=== PATIENT | male | born 1945 | race Caucasian/White ===

== ENCOUNTER → 2016-06-29 | Outpatient (CLI) | payer MEDICARE, OTHER ==
[2016-06-29 08:31] LABS: CH 32.2; HCT 47.3 % (39.0-53.0); HDW 2.83; HGB 15.8 gm/dL (13.0-17.5); MCH 31.8 pg (25.0-35.0); MCHC 33.4 g/dL (31.0-37.0); Mean Platelet Volume 7.7; RBC 4.97 m/uL (4.30-5.90); RDW 13.8 % (11.5-15.5); WBC 8.1 k/uL (3.8-10.6)
[2016-06-29 09:18] LABS: Appearance,Urine Clear (Clear); Bilirubin,Urine Negative (Negative); Glucose,Urine (UA) Negative (Negative); Ketones,Urine Trace (Negative); Leukocyte Esterase,Urine Negative (Negative); Nitrite,Urine Negative (Negative); PH, Urine 6.5 (5.0-8.0); Protein,Urine Negative (Negative); UA Billing (MACRO vs. MICRO) CHEM; Urobilinogen,Urine <2.0 mg/dL (<2.0)
[2016-06-29 11:28] LABS: ALT 40 U/L (21-72); AST 33 U/L (17-59); Alkaline Phosphatase 60 U/L (38-126); Anion Gap 11 mmol/L; Blood Urea Nitrogen 16 mg/dL (9-20); Calcium 9.5 mg/dL (8.4-10.2); Carbon Dioxide 26 mmol/L (22-30); Chloride 104 mmol/L (98-107); Cholesterol 215 mg/dL (<200); Glucose 102 mg/dL (74-99); HDL Cholesterol 46 mg/dL (40-60); Non-African American GFR(MDRD) >60 (>60 ml/min/1.73 sqM); Potassium 4.3 mmol/L (3.5-5.1); Sodium 141 mmol/L (137-145); Total Bilirubin 1.6 mg/dL (0.2-1.3); Triglycerides 155 mg/dL (<150)
== END | disposition home or self-care (01) ==
LOC: LABWHC1 08:00
PROVIDERS: ATTEND Internal Medicine
DX: E78.5 Hyperlipidemia, unspecified (principal); I10 Essential (primary) hypertension; Z12.5 Encounter for screening for malignant neoplasm of prostate
CPT/HCPCS: 80061; 80053; 85027; 81003; 36415; G0103

== ENCOUNTER → 2016-08-04 | Outpatient (CLI) | payer MEDICARE, OTHER ==
--- NOTE | 2016-08-04 10:59 | ECHOF ---
Referral Reason:I34.0 mitral regurgitation I10 htn MEASUREMENTS -------- HEIGHT: 188.0 cm WEIGHT: 147.4 kg BP: 165/92 RVIDd: 3.9 cm (< 3.3) IVSd: 1.4 cm (0.6 - 1.1) LVIDd: 4.7 cm (3.9 - 5.3) LVPWd: 1.5 cm (0.6 - 1.1) IVSs: 1.9 cm LVIDs: 3.2 cm LVPWs: 1.8 cm LA Diam: 4.0 cm (2.7 - 3.8) LAESV Index (A-L): 24.53 ml/m Ao Diam: 4.4 cm (2.0 - 3.7) AV Cusp: 1.4 cm (1.5 - 2.6) MV EXCURSION: 21.432 mm (> 18.000) MV EF SLOPE: 24 mm/s (70 - 150) EPSS: 0.8 cm MV E Benjamin: 0.80 m/s MV DecT: 275 ms MV A Benjamin: 1.24 m/s MV E/A Ratio: 0.64 AV maxP.30 mmHg AV meanP.06 mmHg FINDINGS -------- Sinus rhythm. This was a technically adequate study. The left ventricular size is normal. There is moderate concentric left ventricular hypertrophy. Overall left ventricular systolic function is normal with, an EF between 55 - 60 %. The right ventricle is mild to moderately enlarged. Normal LA size by volume 22+/-6 ml/m2. The right atrium is normal in size. The aortic valve was not well visualized. There is mild aortic regurgitation. There is mild aortic stenosis present. Peak/mean gradient across the Aortic Valve is 17.30mmHg / 8.06mmHg. Can't exclude possible Bicuspid Aov. Mild mitral annular calcification present. Mild mitral regurgitation is present. The tricuspid valve was not well visualized. The pulmonic valve was not well visualized. The aortic root and ascending aorta are dilated measuring up to 44 mm. Normal inferior vena cava with normal inspiratory collapse consistent with estimated right atrial pressure of 5 mmHg. The pericardium is normal. CONCLUSIONS -------- 1. Sinus rhythm. 2. There is mild aortic regurgitation. 3. There is mild aortic stenosis present. 4. Peak/mean gradient across the Aortic Valve is 17.30mmHg / 8.06mmHg. 5. Can't exclude possible Bicuspid Aov. 6. Mild mitral annular calcification present. 7. Mild mitral regurgitation is present. 8. The tricuspid valve was not well visualized. 9. The pulmonic valve was not well visualized. 10. The aortic root and ascending aorta are dilated measuring up to 44 mm. 11. Normal inferior vena cava with normal inspiratory collapse consistent with estimated right atrial pressure of 5 mmHg. 12. This was a technically adequate study. 13. The pericardium is normal. 14. The left ventricular size is normal. 15. There is moderate concentric left ventricular hypertrophy. 16. Overall left ventricular systolic function is normal with, an EF between 55 - 60 %. 17. The right ventricle is mild to moderately enlarged. 18. Normal LA size by volume 22+/-6 ml/m2. 19. The right atrium is normal in size. 20. The aortic valve was not well visualized. DENTISTRY TEACHER: Simona Melchor RDCS
== END | disposition home or self-care (01) ==
LOC: RADECHMAIN 08:31
PROVIDERS: ATTEND Internal Medicine
DX: I08.0 Rheumatic disorders of both mitral and aortic valves (principal); I10 Essential (primary) hypertension; E78.5 Hyperlipidemia, unspecified
CPT/HCPCS: 93306

== ENCOUNTER → 2017-06-29 | Outpatient (CLI) | payer MEDICARE, OTHER ==
[2017-06-29 08:48] LABS: HCT 43.7 % (39.0-53.0); HGB 14.7 gm/dL (13.0-17.5); MCH 30.5 pg (25.0-35.0); MCHC 33.6 g/dL (31.0-37.0); MCV 90.8 fL (80.0-100.0); Mean Platelet Volume 8.1; Platelet Count 196 k/uL (150-450); RBC 4.82 m/uL (4.30-5.90); WBC 7.5 k/uL (3.8-10.6)
[2017-06-29 08:57] LABS: Appearance,Urine Clear (Clear); Bilirubin,Urine Negative (Negative); Blood,Urine Negative (Negative); Color,Urine Yellow; Glucose,Urine (UA) Negative (Negative); Ketones,Urine Trace (Negative); Leukocyte Esterase,Urine Negative (Negative); Nitrite,Urine Negative (Negative); Protein,Urine Negative (Negative); Specific Gravity,Urine 1.009 (1.001-1.035); Urobilinogen,Urine <2.0 mg/dL (<2.0)
[2017-06-29 10:04] LABS: ALT 32 U/L (21-72); AST 35 U/L (17-59); Albumin 3.8 g/dL (3.5-5.0); Alkaline Phosphatase 55 U/L (38-126); Anion Gap 13 mmol/L; Blood Urea Nitrogen 11 mg/dL (9-20); Calcium 9.1 mg/dL (8.4-10.2); Carbon Dioxide 23 mmol/L (22-30); Chloride 107 mmol/L (98-107); Cholesterol 199 mg/dL (<200); Glucose 97 mg/dL (74-99); HDL Cholesterol 47 mg/dL (40-60); LDL Cholesterol,Calculated 135 mg/dL (0-99); Sodium 143 mmol/L (137-145); Total Bilirubin 1.2 mg/dL (0.2-1.3); Total Protein 6.3 g/dL (6.3-8.2); Triglycerides 84 mg/dL (<150)
[2017-06-29 10:28] LABS: Prostate Specific Antigen 0.49 ng/mL (0.00-4.00)
== END | disposition home or self-care (01) ==
LOC: LABWHC1 07:51
PROVIDERS: ATTEND Internal Medicine
DX: E78.5 Hyperlipidemia, unspecified (principal); I10 Essential (primary) hypertension; Z12.5 Encounter for screening for malignant neoplasm of prostate
CPT/HCPCS: 36415; 80053; 80061; 81003; 84153; 85027

== ENCOUNTER → 2017-07-13 | Outpatient (CLI) | payer MEDICARE, OTHER ==
--- NOTE | 2017-07-19 10:28 | ECHOF ---
Referral Reason:I34.0 Nonrheumatic mitral (valve) insufficiency MEASUREMENTS -------- HEIGHT: 188.0 cm WEIGHT: 147.4 kg BP: 156/85 RVIDd: 2.7 cm (< 3.3) IVSd: 1.3 cm (0.6 - 1.1) LVIDd: 5.7 cm (3.9 - 5.3) LVPWd: 1.3 cm (0.6 - 1.1) IVSs: 1.7 cm LVIDs: 3.8 cm LVPWs: 1.9 cm LAESV Index (A-L): 39.66 ml/m Ao Diam: 3.4 cm (2.0 - 3.7) AV Cusp: 2.3 cm (1.5 - 2.6) LA Diam: 4.3 cm (2.7 - 3.8) MV E Benjamin: 0.79 m/s MV DecT: 301 ms MV A Benjamin: 1.19 m/s MV E/A Ratio: 0.66 RAP: 5.00 mmHg RVSP: 29.00 mmHg FINDINGS -------- Sinus rhythm. This was a technically adequate study. The left ventricular size is normal. There is mild concentric left ventricular hypertrophy. Overa ll left ventricular systolic function is mildly impaired with, an EF between 45 - 50 %. The right ventricle is normal in size and function. LA is moderately dilated 34-39 ml/m2 The right atrium is normal in size. There is mild aortic valve sclerosis. There is no evidence of aortic regurgitation. There is no e vidence of aortic stenosis. The mitral valve leaflets are mildly thickened. Mild mitral annular calcification present. Modera te mitral regurgitation is present. Trace tricuspid regurgitation present. Right ventricular systolic pressure is normal at < 35 mmHg. There is no evidence of pulmonary hypertension. The pulmonic valve was not well visualized. The aortic root is mildy dilated up to 3.9 cm. Normal inferior vena cava with normal inspiratory collapse consistent with estimated right atrial pre ssure of 5 mmHg. There is no pericardial effusion. CONCLUSIONS -------- 1. Sinus rhythm. 2. This was a technically adequate study. 3. The left ventricular size is normal. 4. There is mild concentric left ventricular hypertrophy. 5. Overall left ventricular systolic function is mildly impaired with, an EF between 45 - 50 %. 6. LA is moderately dilated 34-39 ml/m2 7. There is mild aortic valve sclerosis. 8. The mitral valve leaflets are mildly thickened. 9. Mild mitral annular calcification present. 10. Moderate mitral regurgitation is present. 11. Trace tricuspid regurgitation present. 12. Right ventricular systolic pressure is normal at < 35 mmHg. 13. There is no evidence of pulmonary hypertension. 14. The pulmonic valve was not well visualized. 15. The aortic root is mildy dilated up to 3.9 cm. 16. There is no pericardial effusion. GRANITE POLISHER: Abilio Eastman RDCS
== END | disposition home or self-care (01) ==
LOC: RADECHMAIN 08:19
PROVIDERS: ATTEND Internal Medicine
DX: I08.0 Rheumatic disorders of both mitral and aortic valves (principal); I77.819 Aortic ectasia, unspecified site
CPT/HCPCS: 93306

== ENCOUNTER → 2018-07-05 | Outpatient (CLI) | payer MEDICARE, OTHER ==
[2018-07-05 09:54] LABS: HCT 45.4 % (39.0-53.0); HGB 15.7 gm/dL (13.0-17.5); MCH 32.3 pg (25.0-35.0); MCHC 34.5 g/dL (31.0-37.0); MCV 93.7 fL (80.0-100.0); Mean Platelet Volume 7.6; Platelet Count 186 k/uL (150-450); RBC 4.84 m/uL (4.30-5.90); RDW 13.5 % (11.5-15.5); WBC 6.9 k/uL (3.8-10.6)
[2018-07-05 10:07] LABS: Appearance,Urine Clear (Clear); Bilirubin,Urine Negative (Negative); Blood,Urine Negative (Negative); Color,Urine Yellow; Glucose,Urine (UA) Negative (Negative); Ketones,Urine Negative (Negative); Leukocyte Esterase,Urine Negative (Negative); Nitrite,Urine Negative (Negative); PH, Urine 6.5 (5.0-8.0); Protein,Urine Negative (Negative); Specific Gravity,Urine 1.014 (1.001-1.035); Urobilinogen,Urine <2.0 mg/dL (<2.0)
[2018-07-05 16:45] LABS: African American GFR (CKD) 104.2 (60.0-200.0); Albumin 4.1 g/dL (3.80-4.90); Albumin/Globulin Ratio 2.28 (1.60-3.17); Anion Gap 5.2 mmol/L (4.00-12.00); BUN/Creat Ratio 16.25 Ratio (12.00-20.00); Calcium 8.8 mg/dL (8.7-10.3); Carbon Dioxide 24.8 mmol/L (21.6-31.8); Globulin 1.8 g/dL (1.6-3.3); LDL Cholesterol,Calculated 126.6 mg/dL (0.0-131.0); Potassium 4.2 mmol/L (3.5-5.5); Total Bilirubin 1.3 mg/dL (0.3-1.2); Total Protein 5.9 g/dL (6.2-8.2); VLDL Calculation 22.4 mg/dL (5.00-40.00)
== END | disposition home or self-care (01) ==
LOC: LABWHC1 09:10
PROVIDERS: ATTEND Internal Medicine
DX: N40.0 Benign prostatic hyperplasia without lower urinary tract symptoms (principal); E78.5 Hyperlipidemia, unspecified; I10 Essential (primary) hypertension
CPT/HCPCS: 36415; 80053; 80061; 81003; 84153; 85027

== ENCOUNTER → 2018-08-28 | Outpatient (CLI) | payer MEDICARE, OTHER ==
--- NOTE | 2018-08-28 11:57 | ECHOF ---
Referral Reason:R01.1 Murmur MEASUREMENTS -------- HEIGHT: 188.0 cm WEIGHT: 147.4 kg BP: 168/86 RVIDd: 3.6 cm (< 3.3) IVSd: 1.4 cm (0.6 - 1.1) LVIDd: 6.3 cm (3.9 - 5.3) LVPWd: 1.4 cm (0.6 - 1.1) IVSs: 1.6 cm LVIDs: 4.2 cm LVPWs: 1.9 cm LA Diam: 4.4 cm (2.7 - 3.8) LAESV Index (A-L): 23.97 ml/m Ao Diam: 4.7 cm (2.0 - 3.7) AV Cusp: 2.5 cm (1.5 - 2.6) MV EXCURSION: 19.132 mm (> 18.000) MV EF SLOPE: 43 mm/s (70 - 150) EPSS: 0.9 cm MV E Benjamin: 0.87 m/s MV DecT: 407 ms MV A Benjamin: 1.09 m/s MV E/A Ratio: 0.80 FINDINGS -------- Sinus rhythm. This was a technically adequate study. The left ventricle is mildly dilated. There is moderate concentric left ventricular hypertrophy. Overall left ventricular systolic function is normal with, an EF between 60 - 65 %. The right ventricle is mildly enlarged. Normal LA size by volume 22+/-6 ml/m2. The right atrium is normal in size. Interatrial and interventricular septum intact. The aortic valve was not well visualized. There is trace mitral regurgitation. The tricuspid valve appears structurally normal. The pulmonic valve was not well visualized. The aortic root is dilated measuring 4.7cm. IVC Not well visulized. There is no pericardial effusion. CONCLUSIONS -------- 1. Sinus rhythm. 2. This was a technically adequate study. 3. The left ventricle is mildly dilated. 4. There is moderate concentric left ventricular hypertrophy. 5. Overall left ventricular systolic function is normal with, an EF between 60 - 65 %. 6. The right ventricle is mildly enlarged. 7. Normal LA size by volume 22+/-6 ml/m2. 8. The right atrium is normal in size. 9. Interatrial and interventricular septum intact. 10. The aortic valve was not well visualized. 11. There is trace mitral regurgitation. 12. The tricuspid valve appears structurally normal. 13. The pulmonic valve was not well visualized. 14. The aortic root is dilated measuring 4.7cm. 15. IVC Not well visulized. 16. There is no pericardial effusion. SEO EXECUTIVE: Simona Melchor RDCS
== END | disposition home or self-care (01) ==
LOC: RADECHMAIN 10:24
PROVIDERS: ATTEND Internal Medicine
DX: I51.7 Cardiomegaly (principal); I77.819 Aortic ectasia, unspecified site; Z88.5 Allergy status to narcotic agent
CPT/HCPCS: 93306

== ENCOUNTER → 2018-09-04 | Outpatient (CLI) | payer MEDICARE, OTHER ==
[2018-09-04 14:27] LABS: African American GFR (CKD) >90 (>60 ml/min/1.73 sqM); Blood Urea Nitrogen 18 mg/dL (9-20)
--- NOTE | 2018-09-04 15:18 | CT ---
EXAMINATION TYPE: CT chest w con DATE OF EXAM: 09/04/2018 COMPARISON: NONE HISTORY: No complaints at time of scan. Follow up from abnormal TE. CT DLP: 664.1 mGycm. Automated Exposure Control for Dose Reduction was Utilized. TECHNIQUE: CT scan of the thorax is performed following with IV Contrast, patient injected with 100 mL of Isovue 370. FINDINGS: LUNGS: Elevated right hemidiaphragm is present. There is patchy bibasilar linear scarring and/or atel ectasis. No pleural effusion or pneumothorax. No suspicious masses. MEDIASTINUM: There are no greater than 1 cm hilar or mediastinal lymph nodes. No pericardial effusi on is seen. Mild cardiomegaly. Moderate calcifications at level of the aortic valve. Moderate to sev ere coronary artery calcifications which is noted marker for underlying coronary artery disease. Asce nding aorta measures up to 4.4 cm in diameter in level of main pulmonary artery bifurcation axial aracely ge 28. Mild to moderate left ventricular dilatation. OTHER: Cholecystectomy clips are noted. Moderate multilevel spurring in the thoracic spine. IMPRESSION: Mild cardiomegaly with confirmation of 4.4 cm aneurysm of the ascending aorta
== END | disposition home or self-care (01) ==
LOC: RADCTMAIN 13:48
PROVIDERS: ATTEND Internal Medicine
DX: I71.2 Thoracic aortic aneurysm, without rupture (principal); I51.7 Cardiomegaly
CPT/HCPCS: 82565; 84520; 71260; 36415; Q9967

== ENCOUNTER 2018-10-03 05:51 | Day surgery (SDC) | payer MEDICARE, OTHER ==
[2018-09-26 15:34] VITALS: BMI 41.7
[2018-10-03 06:30] VITALS: TEMP 97.9
[2018-10-03] MEDS ORDERED: SODIUM CHLORIDE 0.9% 500 ML 500 ML IV ONE (06:31)
[2018-10-03] MEDS ORDERED: fentaNYL (PF) 50 MCG/ML 2 ML AMP ONE (07:05)
[2018-10-03] MEDS ORDERED: BENZOCAINE SPRAY 1 CAN MUCOUS MEM ONE (07:17)
[2018-10-03] MEDS ORDERED: fentaNYL (PF) 50 MCG/ML 2 ML AMP IV ONE (07:18)
[2018-10-03] MEDS ORDERED: MIDAZOLAM PF (FBP) 2 MG/2 ML VIAL IV ONE ×2 (07:19→07:23)
[2018-10-03] MEDS ORDERED: SODIUM CHLORIDE 0.9% 1,000 ML IV SCH (07:45)
[2018-10-03 07:54] VITALS: RESP 16
--- NOTE | 2018-10-03 08:06 | ECHOT ---
TRANSESOPHAGEAL ECHOCARDIOGRAM INDICATION: Evaluation of mitral valve. PROCEDURE: After explaining the procedure to the patient, its risks and the complications, his blood pressure, heart rate, O2 saturation was monitored. The throat was sprayed with Cetacaine. He received 3 mg intravenous Versed, 50 mcg intravenous fentanyl. The probe was introduced in the esophagus without difficulty. Images were obtained. Following that, the probe was removed. There was no immediate complication. FINDINGS: Left atrial size is moderately dilated. Left atrial appendage is normal. Left ventricular size is normal. There is mild global hypokinesis. Estimated ejection fraction 45% to 50%. The aortic valve appears to be normal. Mitral valve reveals severe prolapse of the posterior mitral valve leaflets, appears to be in the P2 segment with ruptured chordae noted. The tricuspid valve is normal. The descending thoracic aorta appears to be normal. The ascending aorta was dilated at 4.1 cm. No pericardial effusion noted was noted. Contrast bubble study revealed no shunting across the interatrial septum with Valsalva maneuver. Doppler pulse wave and color Doppler obtained revealed severe eccentric mitral regurgitation with mild tricuspid and trace aortic regurgitation. There was no shunting by color Doppler study. CONCLUSION: 1. Dilated left atrium with normal appearance of left atrial appendage. 2. Normal left ventricular size with mild global hypokinesis. 3. Severe prolapse of the posterior mitral valve leaflet with severe eccentric mitral regurgitation. 4. Mild tricuspid regurgitation with trace aortic regurgitation. 5. Mildly dilated ascending aorta. 6. No shunting across the interatrial septum. 7. No pericardial effusion. MMODL / IJN: [id number] /
[2018-10-03] MEDS ORDERED: NON FORMULARY DRUG (Turmeric Root Extract [Turmeric] 500 MG) PO SCH (09:00)
[2018-10-03] MEDS ORDERED: LECITHIN SOY 400 MG PO SCH (09:00)
[2018-10-03] MEDS ORDERED: LOSARTAN 50 MG TAB PO SCH (09:00)
[2018-10-03] MEDS ORDERED: NON FORMULARY DRUG (Aspirin [Adult Low Dose Aspirin Ec] 81 MG) PO SCH (09:00)
[2018-10-03] MEDS ORDERED: NON FORMULARY DRUG (Ubidecarenone [Co Q-10] 100 MG) PO SCH (09:00)
[2018-10-03] MEDS ORDERED: EZETIMIBE 10 MG TAB PO SCH (09:00)
[2018-10-03] MEDS ORDERED: NON FORMULARY DRUG (Vit C/E/Zn/Coppr/Lutein/Zeaxan [Preservision Areds 2 Softgel] 1 EACH) PO SCH (09:00)
[2018-10-03] MEDS ORDERED: MONTELUKAST 10 MG TAB PO SCH (09:00)
[2018-10-03] MEDS ORDERED: NON FORMULARY DRUG (Simvastatin 20 MG) PO SCH (09:00)
[2018-10-03] MEDS ORDERED: NON FORMULARY DRUG (Magnesium Oxide 250 MG) PO SCH (09:00)
[2018-10-03] MEDS ORDERED: NON FORMULARY DRUG (Omega-3 Fatty Acids [Omega-3] 1,000 MG) PO SCH (09:00)
[2018-10-03 09:07] VITALS: BP 117/65; PULSE 66
== END 2018-10-03 09:05 | disposition home or self-care (01) ==
LOC: CATHCVL 05:51
PROVIDERS: ATTEND Internal Medicine Interventional Cardiology
DX: I08.0 Rheumatic disorders of both mitral and aortic valves (principal); I71.2 Thoracic aortic aneurysm, without rupture; I10 Essential (primary) hypertension; Z82.49 Family history of ischemic heart disease and other diseases of the circulatory system; Z88.5 Allergy status to narcotic agent; Z79.82 Long term (current) use of aspirin; Z79.899 Other long term (current) drug therapy
CPT/HCPCS: 93312; 93320; 93325; J3010; J2250

== ENCOUNTER → 2018-11-06 | Outpatient (CLI) | payer MEDICARE, OTHER ==
[2018-11-06 17:34] LABS: African American GFR (CKD) 104.2 (60.0-200.0); Albumin 3.7 g/dL (3.80-4.90); Albumin/Globulin Ratio 2.18 (1.60-3.17); Anion Gap 8.6 mmol/L (4.00-12.00); BUN/Creat Ratio 17.5 Ratio (12.00-20.00); Calcium 8.6 mg/dL (8.7-10.3); Carbon Dioxide 25.4 mmol/L (21.6-31.8); Chol/HDL Ratio 5.24; Globulin 1.7 g/dL (1.6-3.3); LDL Cholesterol,Calculated 127.8 mg/dL (0.0-131.0); Total Bilirubin 0.6 mg/dL (0.2-1.2); Total Protein 5.4 g/dL (6.2-8.2); VLDL Calculation 29.2 mg/dL (5.00-40.00)
== END | disposition home or self-care (01) ==
LOC: LABWHC1 08:40
PROVIDERS: ATTEND Internal Medicine Interventional Cardiology
DX: E78.2 Mixed hyperlipidemia (principal)
CPT/HCPCS: 36415; 80053; 80061

== ENCOUNTER → 2018-11-06 | Outpatient (CLI) | payer MEDICARE, OTHER ==
[2018-11-06 09:14] LABS: HCT 41.8 % (39.0-53.0); HGB 14.1 gm/dL (13.0-17.5); MCH 31.9 pg (25.0-35.0); MCHC 33.8 g/dL (31.0-37.0); MCV 94.3 fL (80.0-100.0); Mean Platelet Volume 7.3; Platelet Count 196 k/uL (150-450); RBC 4.44 m/uL (4.30-5.90); RDW 13.7 % (11.5-15.5); WBC 9.7 k/uL (3.8-10.6)
== END | disposition home or self-care (01) ==
LOC: LABPAT 08:38
PROVIDERS: ATTEND Internal Medicine Interventional Cardiology
DX: Z01.812 Encounter for preprocedural laboratory examination (principal); I10 Essential (primary) hypertension; I25.10 Atherosclerotic heart disease of native coronary artery without angina pectoris
CPT/HCPCS: 85027

== ENCOUNTER → 2018-11-13 | Day surgery (SDC) | payer MEDICARE, OTHER ==
[2018-11-08 12:13] VITALS: BMI 40.4
[~2018-11-13] MED LIST: ALPRAZolam 0.25 MG TAB PO PRN; ALPRAZolam 0.5 MG TAB PO PRN; ASPIRIN 325 MG TAB PO STA; ASPIRIN 81 MG PO SCH; ATORVASTATIN 80 MG TAB PO STA; EZETIMIBE 10 MG TAB PO SCH; HEPARIN SODIUM 1,000 UN/ML (10ML VL) IV ONE; HEPARIN SODIUM 1,000 UN/ML (10ML VL) ONE; INSULIN ASPART (NovoLOG) 100 UNIT/ML VIAL SQ ONE; IOPAMIDOL-370 125ML BTL INJ ONE; IOPAMIDOL-370 50ML BTL INJ ONE; LIDOCAINE 1% INJ 10MG/ML (20 ML MDV) ONE; LIDOCAINE 1% INJ 10MG/ML (20 ML MDV) SQ ONE; LOSARTAN 50 MG TAB PO SCH; MONTELUKAST 10 MG TAB PO SCH; NITROGLYCERIN SL TABS 0.4 MG TAB SUBLINGUAL PRN; RX INFO: IV CONTRAST WAS GIVEN 1 EACH MISC MISCELLANE PRN; SODIUM CHLORIDE 0.9% 1,000 ML IV SCH; SODIUM CHLORIDE 0.9% 1,000 ML in EMPTY BAG 1 BAG IV ONE; VERAPAMIL 2.5 MG/ML 2 ML AMP ONE; VERAPAMIL SYRINGE (5 MG/10 ML) INTRAARTER ONE
[2018-11-13 07:09] VITALS: RESP 18; TEMP 97.8
[2018-11-13] MEDS: MIDAZOLAM (PF) 2 MG/2 ML VIAL IVP ONE ×2 (07:52→08:15)
--- NOTE | 2018-11-13 10:54 | CC ---
CARDIAC CATHETERIZATION REPORT Mr. Smith is a 73-year-old male with known history of hypertension, hyperlipidemia, history of severe mitral regurgitation, who had an abnormal myocardial perfusion imaging. In view of that, recommendations were made regarding cardiac catheterization. The procedure as well as risks and the complications were discussed with the patient who is in full understanding and agreement. PROCEDURE: Patient was brought to laboratory immunologist in a fasting, semi-sedated state after receiving fentanyl and Benadryl and achieving moderate conscious sedated state. Using Xylocaine anesthesia in the Seldinger technique, a 6-Palestinian sheath was introduced in the right radial artery. The basilic vein intravenous access was exchanged to a 6-Palestinian sheath. Attempts to advance the [place]-Randy catheter were unsuccessful. The catheter was removed and selective right and left coronary angiography performed using car 5-Palestinian 3.5 bend right Clarissa catheter and a 6-Palestinian Yesica catheter to cannulate the left coronary system. Images of the coronary artery including hemiaxial views were obtained. Following that, a 5-Palestinian tight pigtail catheters was introduced in the ascending aorta and an [place] view was performed. Following that, catheter and sheaths were removed. Hemostasis was obtained with deployment of a TR band. There was no immediate complication. Patient was returned to his room in stable condition. Of note, the patient received 5000 units of intravenous heparin and intra-arterial verapamil. FINDINGS: FLUOROSCOPY: There was calcification involving the left main and the proximal left anterior descending artery. LEFT MAIN: This is a large-sized vessel bifurcating in left circumflex and left anterior descending artery. Left main coronary artery has no evidence of high- grade stenosis. LEFT ANTERIOR DESCENDING ARTERY: This vessel gives rise to a large proximal diagonal branch that has 67% stenosis at the takeoff. Subsequently, the LAD has a 90% stenosis and in mid segment is subtotally occluded with minimal antegrade flow. LEFT CIRCUMFLEX: This is a nondominant vessel giving rise to a moderately size obtuse marginal branch that has mild intimal disease without any evidence of high-grade stenosis. RIGHT CORONARY ARTERY: This is a large dominant vessel bifurcating distally to PDA and posterolateral segment and branches. The right coronary artery and proximal mid segment has 20% to 30% plaque. There is collateral from the right coronary artery toward the distal LAD. AORTOGRAM: Aortogram was performed in the [place] view and revealed a dilated ascending aorta with tricuspid aortic valve and no significant aortic regurgitation. CONCLUSION: 1. Calcified coronary arteries. 2. 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 3. Mild disease in the right coronary artery. 4. Collaterals from the right coronary artery system toward the distal right coronary artery. 5. Dilated ascending aorta. RECOMMENDATION: In view of finding anatomy, I recommend proceeding with evaluation for mitral valve repair and probable coronary artery bypass grafting. Those findings and recommendation were discussed with the patient and his family who are in full understanding and agreement. Duration of procedure is 38 minutes. MMODL / IJN: [id number] / MTDD
--- NOTE | 2018-11-13 11:00 | LTR ---
November 13, 2018 Re: James Smith Dear Dr. Carvajal: I had the opportunity to perform cardiac catheterization on Mr. Smith at [facility] on the 13 of November and a full copy of the procedure note will be forwarded to you. In brief, he was found to have a chronic occluded mid left anterior descending artery with significant stenosis in the proximal LAD and the first diagonal branch with a dilated ascending aorta. At this time, I would recommend to proceed with evaluation for mitral valve repair as well as coronary artery bypass grafting. I will keep you updated on his progress. Thank you again for allowing me the opportunity to participate in his care. Please feel free to call for any questions. Sincerely yours, MD SINGH Rodriguez / RANDI: [id number] /
[2018-11-13 12:28] VITALS: PULSE 63
[2018-11-13 12:39] VITALS: BP 148/75
== END | disposition home or self-care (01) ==
LOC: CATHCVL 06:26
PROVIDERS: ATTEND Internal Medicine Interventional Cardiology
DX: I25.10 Atherosclerotic heart disease of native coronary artery without angina pectoris (principal); I25.84 Coronary atherosclerosis due to calcified coronary lesion; I25.82 Chronic total occlusion of coronary artery; I34.1 Nonrheumatic mitral (valve) prolapse; I71.2 Thoracic aortic aneurysm, without rupture; I10 Essential (primary) hypertension; E78.2 Mixed hyperlipidemia; E78.00 Pure hypercholesterolemia, unspecified; I73.9 Peripheral vascular disease, unspecified; Z82.49 Family history of ischemic heart disease and other diseases of the circulatory system; Z79.82 Long term (current) use of aspirin; Z79.899 Other long term (current) drug therapy; Z88.5 Allergy status to narcotic agent
CPT/HCPCS: 93454; 93567; C1751; C1894; J2001; J1644; Q9967 ×2; J2250

== ENCOUNTER → 2019-09-12 | Outpatient (CLI) | payer MEDICARE, OTHER ==
[2019-09-12 17:22] LABS: African American GFR (CKD) 103.4 (60.0-200.0); Albumin 3.8 g/dL (3.80-4.90); Anion Gap 8.1 mmol/L (4.00-12.00); BUN/Creat Ratio 17.5 Ratio (12.00-20.00); Carbon Dioxide 24.9 mmol/L (21.6-31.8); Chol/HDL Ratio 2.27; Globulin 1.9 g/dL (1.6-3.3); LDL Cholesterol,Calculated 47.2 mg/dL (0.0-131.0); Non-African American GFR(CKD) 89.2 (60.0-200.0); Potassium 3.9 mmol/L (3.5-5.5); Total Bilirubin 1.4 mg/dL (0.3-1.2); Total Protein 5.7 g/dL (6.2-8.2); VLDL Calculation 17.8 mg/dL (5.00-40.00)
== END | disposition home or self-care (01) ==
LOC: LABWHC1 08:38
PROVIDERS: ATTEND Internal Medicine Interventional Cardiology
DX: E78.2 Mixed hyperlipidemia (principal)
CPT/HCPCS: 36415; 80053; 80061

== ENCOUNTER → 2020-03-09 | Outpatient (CLI) | payer MEDICARE, OTHER ==
[2020-03-09 15:34] LABS: African American GFR (CKD) 98.5 (60.0-200.0); Albumin 4.1 g/dL (3.80-4.90); Albumin/Globulin Ratio 2.28 (1.60-3.17); Anion Gap 5.6 mmol/L (4.00-12.00); BUN/Creat Ratio 17.78 Ratio (12.00-20.00); Calcium 9.2 mg/dL (8.7-10.3); Carbon Dioxide 26.4 mmol/L (21.6-31.8); Chol/HDL Ratio 2.58; Globulin 1.8 g/dL (1.6-3.3); LDL Cholesterol,Calculated 53.8 mg/dL (0.0-131.0); Potassium 4.1 mmol/L (3.5-5.5); Total Bilirubin 1.1 mg/dL (0.2-1.2); Total Protein 5.9 g/dL (6.2-8.2); VLDL Calculation 22.2 mg/dL (5.00-40.00)
== END | disposition home or self-care (01) ==
LOC: LABWHC1 08:31
PROVIDERS: ATTEND Internal Medicine Interventional Cardiology
DX: E78.2 Mixed hyperlipidemia (principal)
CPT/HCPCS: 36415; 80053; 80061

== ENCOUNTER → 2020-04-22 | Outpatient (CLI) | payer MEDICARE, OTHER ==
[2020-04-22 11:03] LABS: African American GFR (CKD) >90 (>60 ml/min/1.73 sqM); Blood Urea Nitrogen 17 mg/dL (9-20); Non-African American GFR(CKD) 87 (>60 ml/min/1.73 sqM)
--- NOTE | 2020-04-22 13:13 | CT ---
CT CHEST FOR PULMONARY EMBOLISM. EXAMINATION TYPE: CT angio chest DATE OF EXAM: 04/22/2020 INDICATION: Thoracic aortic aneurysm CT DLP: 504 mGycm, Automated exposure control for dose reduction was used. CONTRAST: Patient injected with 100 mL of Isovue 370. COMPARISON: 09/04/2018 TECHNIQUE: CT of the chest is performed on a spiral scan at 2 mm thick sections. Study is performed with intravenous contrast timed for evaluation of the thoracic aorta. This will limit additional por tions of the evaluation. 3-D MIP images reconstructed by the technologist are reviewed on the [facility] er in the coronal and sagittal planes. FINDINGS: No persistent filling defects are evident to suggest an acute pulmonary embolism. No mediastinal or hilar adenopathy enlarged by CT criteria is evident. The ascending aorta diameter at the level of the main pulmonary artery is 4.8 cm. The main pulmonary artery diameter at the bifur cation is 3.2 cm. Aorta: The aorta at the aortic root has a transverse dimension of 3.7 cm. Descending thoracic aorta at the level of the main pulmonary artery is 4.8 cm. The thoracic aorta at the aortic arch has a martines sverse dimension of 3.3 cm. The descending thoracic aorta tapers to its visualized course and measure s 3.3 cm at the diaphragm. There is a punctate nodule in the periphery of the lateral right apex. Series [address] section through the upper abdomen are unremarkable. IMPRESSIONS: 1. Ascending thoracic aortic aneurysm measuring 4.8 cm AP at the main pulmonary artery level.
== END ==
LOC: RADCTMAIN 10:16
PROVIDERS: ATTEND Internal Medicine Interventional Cardiology
DX: I71.2 Thoracic aortic aneurysm, without rupture (principal)
CPT/HCPCS: 82565; 84520; 71275; 36415; Q9967

== ENCOUNTER 2020-06-19 10:14 | Day surgery (SDC) | payer MEDICARE, OTHER ==
[2020-06-17 11:09] VITALS: BMI 37.8
[~2020-06-19 10:14] MED LIST changes: -ALPRAZolam 0.25 MG TAB PO PRN; -ALPRAZolam 0.5 MG TAB PO PRN; +AMPICILLIN 2,000 MG in SODIUM CHLORIDE 0.9% 100 ML IVPB STA; -ASPIRIN 325 MG TAB PO STA; -ASPIRIN 81 MG PO SCH; -ATORVASTATIN 80 MG TAB PO STA; -EZETIMIBE 10 MG TAB PO SCH; +GENTAMICIN 80 MG in SODIUM CHLORIDE 0.9% 100 ML IVPB ONE; -HEPARIN SODIUM 1,000 UN/ML (10ML VL) IV ONE; -HEPARIN SODIUM 1,000 UN/ML (10ML VL) ONE; -INSULIN ASPART (NovoLOG) 100 UNIT/ML VIAL SQ ONE; -IOPAMIDOL-370 125ML BTL INJ ONE; -IOPAMIDOL-370 50ML BTL INJ ONE; +LACTATED RINGERS 1,000 ML IV SCH; -LIDOCAINE 1% INJ 10MG/ML (20 ML MDV) ONE; -LIDOCAINE 1% INJ 10MG/ML (20 ML MDV) SQ ONE; -LOSARTAN 50 MG TAB PO SCH; -MONTELUKAST 10 MG TAB PO SCH; -NITROGLYCERIN SL TABS 0.4 MG TAB SUBLINGUAL PRN; -RX INFO: IV CONTRAST WAS GIVEN 1 EACH MISC MISCELLANE PRN; -SODIUM CHLORIDE 0.9% 1,000 ML IV SCH; -SODIUM CHLORIDE 0.9% 1,000 ML in EMPTY BAG 1 BAG IV ONE; -VERAPAMIL 2.5 MG/ML 2 ML AMP ONE; -VERAPAMIL SYRINGE (5 MG/10 ML) INTRAARTER ONE
[2020-06-19] MEDS ORDERED: LIDOCAINE 1% (10MG/ML) FOR IV START INTRADERMA ONE (11:10)
[2020-06-19 11:13] VITALS: RESP 16; TEMP 98
[2020-06-19] MEDS ORDERED: PROPOFOL 10 MG/ML 20 ML VIAL IV ONE (11:50)
--- NOTE | 2020-06-19 12:06 | P.PCN ---
Date of Procedure: 06/19/20 Procedure(s) Performed: BRIEF HISTORY: Patient is a 75-year-old pleasant white male scheduled for an elective colonoscopy as a part of screening for colorectal neoplasia. PROCEDURE PERFORMED: Colonoscopy with biopsy. PREOPERATIVE DIAGNOSIS: Screening for colon cancer. IV sedation per Anesthesia. PROCEDURE: After informed consent was obtained, the patient, was brought into the endoscopy unit. IV sedation was administered by Anesthesia under continuous monitoring. Digital rectal examination was normal. Initially the Olympus CF-160 flexible video colonoscope was then inserted in the rectum, gradually advanced into the cecum without any difficulty. Careful examination was performed as the scope was gradually being withdrawn. Ileocecal valve and the appendiceal orifice were visualized and appeared normal. Prep was excellent. Mucosa of the cecum, ascending colon, appeared normal. In the transverse colon there was a 3 mm polyp removed by cold biopsy. Rest of the transverse colon, descending colon, sigmoid colon, and rectum appeared normal. Moderate left sided diverticulosis seen Retroflexion was performed in the rectum and no lesions were seen. The patient tolerated the procedure well. IMPRESSION: 3 mm transverse colon polyp status post removal by cold biopsy Moderate left sided diverticulosis RECOMMENDATIONS: Findings of this examination were discussed with the patient as well as his family. He was advised to follow with the biopsy results. If the biopsy shows an adenoma he can have a repeat colonoscopy in 5 years.
[2020-06-19 12:40] VITALS: BP 138/81; PULSE 62
== END 2020-06-19 12:53 | disposition home or self-care (01) ==
LOC: ORWHC2ENDO 10:14
PROVIDERS: ATTEND Internal Medicine Gastroenterology
DX: Z12.11 Encounter for screening for malignant neoplasm of colon (principal); K57.30 Diverticulosis of large intestine without perforation or abscess without bleeding; K63.5 Polyp of colon; I10 Essential (primary) hypertension; E78.5 Hyperlipidemia, unspecified; Z79.899 Other long term (current) drug therapy; Z88.5 Allergy status to narcotic agent; Z88.8 Allergy status to other drugs, medicaments and biological substances; Z95.1 Presence of aortocoronary bypass graft
CPT/HCPCS: 88305; 45380; J1580; J0290; J2704

== ENCOUNTER → 2020-09-09 | Outpatient (CLI) | payer MEDICARE, OTHER ==
[2020-09-10 03:44] LABS: African American GFR (CKD) 97.9 (60.0-200.0); Albumin/Globulin Ratio 1.74 (1.60-3.17); Anion Gap 9.5 mmol/L (4.00-12.00); BUN/Creat Ratio 16.67 Ratio (12.00-20.00); Calcium 9.3 mg/dL (8.7-10.3); Carbon Dioxide 24.5 mmol/L (21.6-31.8); Chol/HDL Ratio 2.48; Globulin 2.3 g/dL (1.6-3.3); LDL Cholesterol,Calculated 55.4 mg/dL (0.0-131.0); Non-African American GFR(CKD) 84.4 (60.0-200.0); Potassium 4.2 mmol/L (3.5-5.5); Total Bilirubin 1.1 mg/dL (0.2-1.2); Total Protein 6.3 g/dL (6.2-8.2); VLDL Calculation 21.6 mg/dL (5.00-40.00)
== END | disposition home or self-care (01) ==
LOC: LABWHC1 08:44
PROVIDERS: ATTEND Internal Medicine Interventional Cardiology
DX: E78.2 Mixed hyperlipidemia (principal)
CPT/HCPCS: 36415; 80053; 80061

== ENCOUNTER 2020-12-02 09:41 | Day surgery (SDC) | payer MEDICARE, OTHER ==
[2020-12-01 09:12] VITALS: BMI 38.1
[~2020-12-02 09:41] MED LIST changes: -AMPICILLIN 2,000 MG in SODIUM CHLORIDE 0.9% 100 ML IVPB STA; +CYCLOPENTOLATE 1% OPHTH SOLN 2 ML BTL OP PRN; -GENTAMICIN 80 MG in SODIUM CHLORIDE 0.9% 100 ML IVPB ONE; +LIDOCAINE 1% (10MG/ML) FOR IV START INTRADERMA PRN; +MOXIFLOXACIN HCL 0.5% DROPS 3 ML BTL OP PRN; +TETRACAINE 0.5% OPHTH (PF) DROPS 4 ML BTL OP PRN; +TIMOLOL 0.5% OPHTH DROPS 5 ML BTL OP PRN
[2020-12-02] MEDS: PHENYLEPHRINE 2.5% OPHTH DRP 2ML OP PRN ×2 (10:07→10:08)
[2020-12-02 10:11] VITALS: TEMP 98.2
[2020-12-02] MEDS ORDERED: HYALURONATE SODIUM INTRAOCULAR 1 EACH SYRINGE (12MG/ML) INTRAOCULA ONE (10:27)
[2020-12-02] MEDS ORDERED: BALANCED SALT IRRIG SOLN COMB2 15 ML IRRIG.SOLN IRRIGATION ONE (10:27)
[2020-12-02] MEDS ORDERED: LIDOCAINE 1% (PF) 10MG/ML VIAL MISCELLANE ONE (10:28)
[2020-12-02] MEDS ORDERED: fentaNYL (PF) 50 MCG/ML 2 ML AMP ONE (10:40)
[2020-12-02] MEDS ORDERED: MIDAZOLAM 2 MG/2 ML VIAL ONE (10:40)
[2020-12-02] MEDS ORDERED: EPINEPHrine (PF) 0.3 ML in BALANCED SALT IRRIG SOLN COMB2 500 ML IRRIGATION ONE (10:46)
[2020-12-02] MEDS ORDERED: ATROPINE OPHTH SOLN 1% 5ML BTL RIGHT EYE ONE (11:24)
--- NOTE | 2020-12-02 11:29 | P.OP ---
Date of Procedure: 12/02/20 Preoperative Diagnosis: NS & CS & astig Postoperative Diagnosis: same Procedure(s) Performed: PIOL< OD Implants: [id number] Anesthesia: MAC Surgeon: José Miguel Han Pathology: none sent Condition: stable Disposition: same day Indications for Procedure: blurry vision Operative Findings: no complications
[2020-12-02 11:30] VITALS: PULSE 57; RESP 16
[2020-12-02 11:45] VITALS: BP 138/75
--- NOTE | 2020-12-03 10:43 | OP ---
OPERATIVE REPORT DATE OF SERVICE: December 02, 2020 PROCEDURES: Phacoemulsification of cataract and intraocular lens implant of the right eye. PREOPERATIVE DIAGNOSES: Nuclear sclerosis, cortical sclerosis, posterior subcapsular cataract. POSTOPERATIVE DIAGNOSES: Nuclear sclerosis, cortical sclerosis, posterior subcapsular cataract. SURGEON: Dr. José Miguel Han. ANESTHESIA: Topical. ESTIMATED BLOOD LOSS: None. SPECIMEN TAKEN: None. NARRATIVE: After obtaining the appropriate consent, the patient was brought to the operating room. There he was asked to sit upright and the axes 0 and 180 degrees were identified and marked with a gentian lillie marker. He was then placed in the proper supine position under cardiac monitoring, then prepped and draped in the usual sterile manner. He was approached from his right temporal side. Using previously acquired corneal topography information, the axis of 84 degrees was identified and marked with the Original axis marker. This was followed by placement of a 5.5 mm Kelly ring centrally on the patient's cornea. At the 11 o'clock position, an MVR blade was used to create a paracentesis port. Through this opening 1% lidocaine MPF 50:50 mix with balanced salt solution was injected into the anterior chamber. This was followed by stabilization of the anterior chamber with Amvisc. At the 9 o'clock position a 2.75 mm jurgen keratome was used to create a self-sealing corneal flap incision in a Langerman's fashion. Through this opening, a cystotome was introduced to begin a continuous tear capsulorrhexis which was completed using the Utrata forceps. Care was taken to ensure that the rhexis was at least the size of the ring previously placed on the patient's cornea. Hydrodissection and hydrodelineation of the lens were accomplished with balanced salt solution. Phacoemulsification of the lens utilizing phaco chop was accomplished in 13.76 seconds at 13% power. Additional Xylocaine MPF was instilled into the anterior chamber. This was followed by removal of the remaining cortex under irrigation and aspiration as well as careful polishing of the posterior capsule in the capsule vacuum mode. Provisc was then used to stabilize the capsule in the anterior chamber using both Gabby and Pappose. Anterior capsular polishers were utilized to remove as much remaining cortical material from the capsule and its equator as feasibly possible. The jurgen keratome was then used to slightly enlarge the temporal incision and a Bausch and Lomb true line model BL1UT 13 diopter by 2 diopter posterior chamber intraocular lens was then inserted into the capsular bag without difficulty. The remaining viscoelastic was removed from in and around the intraocular lens and the lens was rotated at multiple times to ensure that there was no remaining capsular material to enhance fibrosis. The lens was finely rotated to the axis of 84 degrees in line with the previously placed corneal burton. The lens was then slightly tamponaded against the posterior capsule and the eye was brought to normal intraocular pressures through the paracentesis port with balance salt solution. Wounds were confirmed watertight and secured using ReSure tissue sealant. He then received 2 drops of 0.5% timolol followed by 2 drops of moxifloxacin and 2 drops of 1% atropine. He was then lightly patched and shielded in the usual manner. There were no complications from the procedure. He tolerated the procedure well and was returned to outpatient recovery in good condition. MMRADHAL / ABDULKADIRN: [id number] /
== END 2020-12-02 12:07 | disposition home or self-care (01) ==
LOC: OR 09:41
PROVIDERS: ATTEND Ophthalmology
DX: H25.11 Age-related nuclear cataract, right eye (principal); I10 Essential (primary) hypertension; E78.5 Hyperlipidemia, unspecified; F12.99 Cannabis use, unspecified with unspecified cannabis-induced disorder
CPT/HCPCS: 66984; V2632; V2788; J2250; J0171; J3010; J2001

== ENCOUNTER 2020-12-30 07:12 | Day surgery (SDC) | payer MEDICARE, OTHER ==
[2020-12-28 16:06] VITALS: BMI 38.7
[~2020-12-30 07:12] MED LIST changes: -CYCLOPENTOLATE 1% OPHTH SOLN 2 ML BTL OP PRN; -LACTATED RINGERS 1,000 ML IV SCH; -LIDOCAINE 1% (10MG/ML) FOR IV START INTRADERMA PRN
[2020-12-30] MEDS ORDERED: MIDAZOLAM 2 MG/2 ML VIAL IV PRN (07:16)
[2020-12-30] MEDS ORDERED: HYDROmorphone 0.5 MG/0.5 ML SYRINGE IVP PRN (07:16)
[2020-12-30] MEDS ORDERED: LACTATED RINGERS 1,000 ML IV SCH (07:16)
[2020-12-30] MEDS ORDERED: DEXAMETHASONE SOD PHOSPHATE 4 MG/ML 1 ML VIAL IV ONE (07:16)
[2020-12-30] MEDS ORDERED: ONDANSETRON 4 MG/2 ML VIAL IVP ONE (07:16)
[2020-12-30] MEDS ORDERED: LIDOCAINE 1% (10MG/ML) FOR IV START INTRADERMA PRN (07:16)
[2020-12-30] MEDS: CYCLOPENTOLATE 1% OPHTH SOLN 2 ML BTL OP PRN ×3 (07:37→07:49)
[2020-12-30 07:39] VITALS: RESP 16; TEMP 97.7
[2020-12-30] MEDS: PHENYLEPHRINE 2.5% OPHTH DRP 2ML OP PRN ×3 (07:40→07:52)
[2020-12-30] MEDS ORDERED: MIDAZOLAM 2 MG/2 ML VIAL ONE (08:14)
[2020-12-30] MEDS ORDERED: fentaNYL (PF) 50 MCG/ML 2 ML AMP ONE (08:14)
[2020-12-30] MEDS ORDERED: HYALURONATE SODIUM INTRAOCULAR 1 EACH SYRINGE (12MG/ML) INTRAOCULA ONE (08:37)
[2020-12-30] MEDS ORDERED: LIDOCAINE 1% (PF) 10MG/ML VIAL MISCELLANE ONE (08:38)
[2020-12-30] MEDS ORDERED: BALANCED SALT IRRIG SOLN COMB2 15 ML IRRIG.SOLN INTRAOCULA ONE (08:38)
[2020-12-30] MEDS ORDERED: EPINEPHrine (PF) 0.3 ML in BALANCED SALT IRRIG SOLN COMB2 500 ML IRRIGATION ONE (08:39)
[2020-12-30] MEDS ORDERED: ATROPINE OPHTH SOLN 1% 5ML BTL LEFT EYE ONE (08:48)
--- NOTE | 2020-12-30 09:01 | P.OP ---
Date of Procedure: 12/30/20 Preoperative Diagnosis: NS & CS reg astigmatism Postoperative Diagnosis: same Procedure(s) Performed: PIOL, OS Implants: BL1UT 13.50x 2.75 Anesthesia: MAC Surgeon: José Miguel Han Pathology: none sent Condition: stable Disposition: same day Indications for Procedure: blurry vision Operative Findings: nocomplications
[2020-12-30 09:20] VITALS: BP 145/82; PULSE 55
--- NOTE | 2020-12-31 08:49 | OP ---
OPERATIVE REPORT DATE OF SURGERY: 12/30/2020 PROCEDURE: Phacoemulsification of cataract and intraocular lens implant of the left eye. PREOPERATIVE DIAGNOSIS: Nuclear sclerosis, cortical sclerosis and regular astigmatism. POSTOPERATIVE DIAGNOSIS: Nuclear sclerosis, cortical sclerosis and regular astigmatism. SURGEON: Dr. José Miguel Han. ANESTHESIA: Topical. ESTIMATED BLOOD LOSS: None. SPECIMEN TAKEN: None. NARRATIVE: After obtaining the appropriate consent, the patient was then brought to the operating room. There he was asked to sit upright, and the axes of 0 and 180 degrees were identified and marked with a gentian lillie marker on the patient's corneal limbus. He was then placed in the proper supine position under cardiac monitoring, then prepped and draped in the usual sterile manner. He was approached from his left temporal side, and using the previously acquired corneal topography information, an axis of 101 degrees was identified and marked using a aaTag axis marker. Additionally, a 5.5 mm Kelly ring was placed centrally over the patient's Purkinje reflex. At the 5 o'clock position an MVR blade was used to create a paracentesis port. Through this opening, 1% Xylocaine MPF 50:50 mix with balanced salt solution was injected into the anterior chamber. This was followed by stabilization of the anterior chamber with Amvisc. At the 3 o'clock position a 2.75 mm jurgen keratome was used to create a self-sealing corneal flap incision in a Langerman's fashion. Through this opening, a cystotome was introduced to begin a continuous tear capsulorrhexis which was completed using the Utrata forceps. Extra care was taken to ensure that the size of the rhexis was at least the size of the jourdan on the patient's cornea. Hydrodissection and hydrodelineation of the lens were accomplished with balanced salt solution. Phacoemulsification of the lens utilizing phaco chop was accomplished in 12.25 seconds at 14% power. Additional Xylocaine MPF was instilled into the anterior chamber. This was followed by removal of the remaining cortex under irrigation and aspiration as well as careful polishing of the posterior capsule in the capsule vacuum mode. Amvisc was then used to stabilize the capsular bag, and using both Gabby and Pramodose capsular polishing instruments, the entire 360 degrees of the capsule was gently abraded with these instruments, removing any remaining cortical material from as close to the equator as feasible. The temporal incision was enlarged slightly and a Bausch [employer] Trulign Toric lens model BL1UT 13.5 diopter by 2.75 diopter astigmatism correction was then placed into the capsular bag without difficulty. The lens was rotated at least 270 degrees both by Sinskey as well as irrigation aspiration tip. The remaining viscoelastic was then removed from in and around the intraocular lens and the anterior chamber. The final step was to ensure the proper alignment of the implant against the 101-degree marking which was on the patient's cornea. The lens was gently tamponaded against the posterior capsule and the eye was then brought to normal intraocular pressure through the paracentesis port with balanced salt solution. Care was taken to ensure watertight integrity with ReSure. The eye was then treated with two drops of 0.5% Timolol followed by two drops of moxifloxacin and two drops of 1% atropine. He was then lightly patched and shielded in the usual manner. There were no complications from the procedure. He tolerated the procedure well and was returned to [facility] in good condition. MMGREGORIO / ABDULKADIRN: [id number] /
== END 2020-12-30 09:39 | disposition home or self-care (01) ==
LOC: OR 07:12
PROVIDERS: ATTEND Ophthalmology
DX: H25.012 Cortical age-related cataract, left eye (principal); H25.12 Age-related nuclear cataract, left eye; H52.223 Regular astigmatism, bilateral; H00.026 Hordeolum internum left eye, unspecified eyelid; H52.4 Presbyopia; I25.10 Atherosclerotic heart disease of native coronary artery without angina pectoris; I11.9 Hypertensive heart disease without heart failure; J45.909 Unspecified asthma, uncomplicated; M19.90 Unspecified osteoarthritis, unspecified site; H91.90 Unspecified hearing loss, unspecified ear; Z83.518 Family history of other specified eye disorder; E78.5 Hyperlipidemia, unspecified; Z98.41 Cataract extraction status, right eye; Z96.1 Presence of intraocular lens; Z85.828 Personal history of other malignant neoplasm of skin; Z96.652 Presence of left artificial knee joint; Z95.1 Presence of aortocoronary bypass graft; Z98.890 Other specified postprocedural states; Z79.899 Other long term (current) drug therapy; Z79.82 Long term (current) use of aspirin; Z88.5 Allergy status to narcotic agent
CPT/HCPCS: 66984; V2632; V2788; J2250; J1100; J2405; J0171; J3010; J2001

== ENCOUNTER → 2021-02-22 | Outpatient (CLI) | payer MEDICARE, OTHER ==
[2021-02-22 20:22] LABS: ALT 28 U/L (10-49); AST 24 U/L (14-35); Chol/HDL Ratio 2.46 Ratio; LDL Cholesterol,Calculated 54.2 mg/dL (0.0-131.0)
== END | disposition home or self-care (01) ==
LOC: LABWHC1 10:11
PROVIDERS: ATTEND Internal Medicine Interventional Cardiology
DX: E78.2 Mixed hyperlipidemia (principal)
CPT/HCPCS: 36415; 80061; 84450; 84460

== ENCOUNTER 2021-06-25 09:03 | Day surgery (SDC) | payer MEDICARE, OTHER ==
[2021-06-24 09:14] VITALS: BMI 38.5
[~2021-06-25 09:03] MED LIST changes: +LACTATED RINGERS 1,000 ML IV SCH; -MOXIFLOXACIN HCL 0.5% DROPS 3 ML BTL OP PRN; -TETRACAINE 0.5% OPHTH (PF) DROPS 4 ML BTL OP PRN; -TIMOLOL 0.5% OPHTH DROPS 5 ML BTL OP PRN
[2021-06-25 11:12] VITALS: RESP 16; TEMP 97.3
[2021-06-25] MEDS ORDERED: PROPOFOL 10 MG/ML 20 ML VIAL IV ONE (12:51)
[2021-06-25] MEDS ORDERED: LIDOCAINE 2% INJ 20 MG/ML (2 ML VIAL) ONE (12:51)
--- NOTE | 2021-06-25 13:04 | P.PCN ---
Date of Procedure: 06/25/21 Procedure(s) Performed: BRIEF HISTORY: Patient is a 76-year-old, pleasant, white male scheduled for an upper endoscopy as a part of evaluation of intermittent dysphagia to solids for the last 2 years duration.. He feels the food gets stuck in his throat area. He was having some reflux symptoms and was recently started on omeprazole 20 mg daily with some improvement. PROCEDURE PERFORMED: Esophagogastroduodenoscopy. 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 IV sedation per anesthesia. PROCEDURE: After informed consent was obtained, the patient was brought into the endoscopy unit. IV sedation was administered by Anesthesia under continuous monitoring. Initially the Olympus GIF-140 video endoscope was inserted into the mouth. There was a 2 cm Zenker's diverticulum noted in the cervical esophagus. With gentle manipulation the scope was advanced and esophagus intubated without any difficulty. It was gradually advanced into the stomach and duodenum and carefully examined. The bulb and the second part of the duodenum appeared normal. The scope at this time was withdrawn to the stomach, adequately insufflated with air, and upon careful examination, mucosa of the antrum, body, cardia and the fundus appeared normal. The scope was then withdrawn into the e sophagus. Small sliding type hiatal hernia noted. The GE junction was located at 39 cm from the incisors. The esophagus appeared normal. There were no erosions or ulcerations seen, no evidence of esophageal stricture and the patient tolerated the procedure well. IMPRESSION: 1. 2 cm Zenker's diverticulum in the proximal cervical esophagus. 2. Small hiatal hernia but no evidence of esophagitis or esophageal stricture. RECOMMENDATIONS: The findings of this examination were discussed with the patient as well as his family. His symptoms are related to Zenker's diverticulum and I suggested that he continue with softer foods at this time. If he continues to have worsening symptoms he can be referred to [facility] for Z-POEMS.
[2021-06-25 13:30] VITALS: BP 139/87; PULSE 57
== END 2021-06-25 14:04 | disposition home or self-care (01) ==
LOC: ORWHC2ENDO 09:03
PROVIDERS: ATTEND Internal Medicine Gastroenterology
DX: K22.5 Diverticulum of esophagus, acquired (principal); K44.9 Diaphragmatic hernia without obstruction or gangrene; F03.90 Unspecified dementia, unspecified severity, without behavioral disturbance, psychotic disturbance, mood disturbance, and anxiety; I25.10 Atherosclerotic heart disease of native coronary artery without angina pectoris; I10 Essential (primary) hypertension; E78.5 Hyperlipidemia, unspecified; Z88.5 Allergy status to narcotic agent; K21.9 Gastro-esophageal reflux disease without esophagitis; E66.01 Morbid (severe) obesity due to excess calories; Z95.1 Presence of aortocoronary bypass graft; Z79.899 Other long term (current) drug therapy
CPT/HCPCS: 43235; J2704; J2001

== ENCOUNTER → 2021-07-26 | Outpatient (CLI) | payer MEDICARE, OTHER ==
[2021-07-26 09:32] LABS: African American GFR (CKD) >90 (>60 ml/min/1.73 sqM); Blood Urea Nitrogen 16 mg/dL (9-20); Non-African American GFR(CKD) 87 (>60 ml/min/1.73 sqM)
--- NOTE | 2021-07-26 12:35 | CT ---
EXAMINATION TYPE: CT angio chest DATE OF EXAM: 07/26/2021 COMPARISON: CT dated 04/22/2020 HISTORY: Thoracic aortic aneurysm CT DLP: 1123 mGy.cm. Automated Exposure Control for Dose Reduction was Utilized. TECHNIQUE AND CONTRAST: CTA scan of the thorax is performed without and with IV Contrast, patient injected with 100 ml mL of Isovue 370, thoracic aortic angiogram protocol. MIP and 3-D Images are created on an independent [employer] rkstation and reviewed. FINDINGS: Known ascending aortic aneurysm measuring 4.9 cm compared to 4.8 cm previously. Coronary arterial maciel cifications/sutures. The pulmonary trunk measures 3.5 cm, suggestive of pulmonary hypertension. Gross ly unremarkable remainder of the thoracic and upper abdominal aorta. Scattered atherosclerotic calcif ications of the visualized aorta, major mediastinal and upper abdominal arteries. Previous cardiac pearson rgery and sternotomy wire sutures. No gross cardiomegaly. No pericardial effusion. Small scattered pulmonary atelectasis and mild fibrotic changes mainly in the lung bases, stable. Few millimetric pulmonary nodules, also stable. Patent trachea and main bronchi. No pleural effusion. No pathologically enlarged lymph nodes in the chest. Previous cholecystectomy. Suspected right renal st one, not completely included in the scan. Atrophic pancreas. Degenerative changes of the thoracic spi ne. IMPRESSION: Known ascending aortic aneurysm measuring up to 4.9 cm compared to 4.8 cm previously. Incidental find ings as described above.
== END | disposition home or self-care (01) ==
LOC: RADCTMAIN 08:52
PROVIDERS: ATTEND Internal Medicine Interventional Cardiology
DX: I71.2 Thoracic aortic aneurysm, without rupture (principal)
CPT/HCPCS: 82565; 84520; 71275; 36415; Q9967

== ENCOUNTER → 2021-09-10 | Outpatient (CLI) | payer MEDICARE, OTHER ==
[2021-09-10 14:56] LABS: ALT 26 U/L (10-49); AST 26 U/L (14-35); African American GFR (CKD) 97.6 (60.0-200.0); Albumin 3.9 g/dL (3.8-4.9); Albumin/Globulin Ratio 1.66 (1.60-3.17); Alkaline Phosphatase 49 U/L (41-126); Blood Urea Nitrogen 17.2 mg/dL (9.0-27.0); Calcium 9.1 mg/dL (8.7-10.3); Carbon Dioxide 23.1 mmol/L (20.0-27.5); Chloride 107 mmol/L (96-109); Chol/HDL Ratio 2.21 Ratio; Globulin 2.3 g/dL (1.6-3.3); Glucose 99 mg/dL (70-110); LDL Cholesterol,Calculated 48.8 mg/dL (0.0-131.0); Non-African American GFR(CKD) 84.2 (60.0-200.0); Sodium 141 mmol/L (135-145); Total Protein 6.2 g/dL (6.2-8.2); VLDL Calculation 14.08 mg/dL (5.00-40.00)
== END | disposition home or self-care (01) ==
LOC: LABWHC1 08:58
PROVIDERS: ATTEND Internal Medicine Interventional Cardiology
DX: E78.2 Mixed hyperlipidemia (principal)
CPT/HCPCS: 36415; 80053; 80061

== ENCOUNTER → 2022-02-16 | Outpatient (CLI) | payer MEDICARE, OTHER ==
[2022-02-16 14:55] LABS: ALT 32 U/L (10-49); AST 28 U/L (14-35); African American GFR (CKD) 99.7 (60.0-200.0); Albumin 4.1 g/dL (3.8-4.9); Albumin/Globulin Ratio 2.08 (1.60-3.17); Alkaline Phosphatase 57 U/L (41-126); BUN/Creat Ratio 12.77 Ratio (12.00-20.00); Blood Urea Nitrogen 10.8 mg/dL (9.0-27.0); Calcium 9.4 mg/dL (8.7-10.3); Carbon Dioxide 25.7 mmol/L (20.0-27.5); Chloride 105 mmol/L (96-109); Chol/HDL Ratio 2.41 Ratio; Glucose 101 mg/dL (70-110); LDL Cholesterol,Calculated 54.8 mg/dL (0.0-131.0); Potassium 4.2 mmol/L (3.5-5.5); Sodium 140 mmol/L (135-145)
== END | disposition home or self-care (01) ==
LOC: LABWHC1 09:26
PROVIDERS: ATTEND Internal Medicine Interventional Cardiology
DX: E78.2 Mixed hyperlipidemia (principal)
CPT/HCPCS: 36415; 80053; 80061

== ENCOUNTER → 2022-09-08 | Outpatient (CLI) | payer MEDICARE, OTHER ==
[2022-09-08 16:23] LABS: ALT 29 U/L (10-49); AST 31 U/L (14-35); Albumin 4.3 d/dL (3.8-4.9); Albumin/Globulin Ratio 1.95 Ratio (1.60-3.17); Alkaline Phosphatase 51 U/L (41-126); BUN/Creat Ratio 12.27 Ratio (12.00-20.00); Blood Urea Nitrogen 13.5 mg/dL (9.0-27.0); Calcium 9.6 mg/dL (8.7-10.3); Carbon Dioxide 24.4 mmol/L (21.6-31.8); Chloride 106 mmol/L (96-109); Chol/HDL Ratio 2.22 Ratio; Globulin 2.2 d/dL (1.6-3.3); Glucose 99 mg/dL (70-110); LDL Cholesterol,Calculated 57.3 mg/dL (0.0-131.0); Potassium 4.5 mmol/L (3.5-5.5); Sodium 141 mmol/L (135-145); Total Bilirubin 1.1 mg/dL (0.3-1.2); Total Protein 6.5 d/dL (6.2-8.2); VLDL Calculation 19.46 mg/dL (5.00-40.00)
== END | disposition home or self-care (01) ==
LOC: LABWHC1 08:53
PROVIDERS: ATTEND Internal Medicine Interventional Cardiology
DX: E78.2 Mixed hyperlipidemia (principal)
CPT/HCPCS: 36415; 80053; 80061

== ENCOUNTER → 2023-02-23 | Outpatient (CLI) | payer MEDICARE, OTHER ==
[2023-02-23 11:35] LABS: Chol/HDL Ratio 2.36 Ratio; VLDL Calculation 18.96 mg/dL (5.00-40.00)
[2023-02-23 11:36] LABS: ALT 28 U/L (10-49); AST 26 U/L (14-35); Albumin 4.2 g/dL (3.8-4.9); Albumin/Globulin Ratio 1.91 Ratio (1.60-3.17); Alkaline Phosphatase 55 U/L (41-126); BUN/Creat Ratio 17.78 Ratio (12.00-20.00); Calcium 9.4 mg/dL (8.7-10.3); Carbon Dioxide 24.5 mmol/L (21.6-31.8); Chloride 108 mmol/L (96-109); Globulin 2.2 g/dL (1.6-3.3); Glucose 99 mg/dL (70-110); LDL Cholesterol,Calculated 58.1 mg/dL (0.0-131.0); Potassium 4.2 mmol/L (3.5-5.5); Sodium 144 mmol/L (135-145); Total Bilirubin 0.8 mg/dL (0.3-1.2); Total Protein 6.4 g/dL (6.2-8.2)
== END | disposition home or self-care (01) ==
LOC: LABWHC1 07:59
PROVIDERS: ATTEND Internal Medicine Interventional Cardiology
DX: E78.2 Mixed hyperlipidemia (principal)
CPT/HCPCS: 36415; 80053; 80061

== ENCOUNTER → 2023-06-20 | Outpatient (CLI) | payer MEDICARE, OTHER ==
[2023-06-20 14:50] LABS: Basophils # (A) 0.11 X 10*3/uL (0.00-0.10); Basophils % (A) 1.4 %; Eosinophils # (A) 0.41 X 10*3/uL (0.04-0.35); Eosinophils % (A) 5.3 %; HCT 44.6 % (39.6-50.0); Lymphocytes # (A) 1.96 X 10*3/uL (0.90-5.00); Lymphocytes % (A) 25.2 %; MCH 31.6 pg (27.0-32.0); MCHC 33.6 g/dL (32.0-37.0); MCV 94.1 FL (80.0-97.0); Mean Platelet Volume 10.9 FL (9.5-12.2); Monocytes # (A) 0.68 X 10*3/uL (0.20-1.00); Monocytes % (A) 8.7 %; NRBC Per 100 WBC 0 X 10*3/uL (0.00-0.01); Neutrophils % (A) 57.9 %; Platelet Count 189 X 10*3/uL (140-440); RBC 4.74 X 10*6/uL (4.40-5.60); RDW 13.6 % (11.5-14.5); WBC 7.78 X 10*3/uL (4.50-10.00)
[2023-06-20 16:12] LABS: ALT 25 U/L (10-49); AST 26 U/L (14-35); Albumin 4.2 g/dL (3.8-4.9); Alkaline Phosphatase 56 U/L (41-126); BUN/Creat Ratio 15.75 Ratio (12.00-20.00); Blood Urea Nitrogen 12.6 mg/dL (9.0-27.0); Calcium 9.1 mg/dL (8.7-10.3); Carbon Dioxide 23.9 mmol/L (21.6-31.8); Chloride 107 mmol/L (96-109); Chol/HDL Ratio 2.28 Ratio; Globulin 2.1 g/dL (1.6-3.3); Glucose 108 mg/dL (70-110); LDL Cholesterol,Calculated 50.8 mg/dL (0.0-131.0); Magnesium 2.1 mg/dL (1.5-2.4); Sodium 142 mmol/L (135-145); Total Bilirubin 0.9 mg/dL (0.3-1.2); Total Protein 6.3 g/dL (6.2-8.2)
[2023-06-20 16:13] LABS: Prostate Specific Antigen 0.49 ng/mL (0.000-6.500)
== END | disposition home or self-care (01) ==
LOC: LABWHC1 08:05
PROVIDERS: ATTEND Internal Medicine
DX: Z00.00 Encounter for general adult medical examination without abnormal findings (principal); I10 Essential (primary) hypertension; E78.2 Mixed hyperlipidemia; N40.0 Benign prostatic hyperplasia without lower urinary tract symptoms
CPT/HCPCS: 36415; 80053; 80061; 83036; 83735; 84153; 84443; 85025

== ENCOUNTER → 2023-08-29 | Outpatient (CLI) | payer MEDICARE, OTHER ==
[2023-08-29 10:57] LABS: ALT 27 U/L (10-49); AST 28 U/L (14-35); Albumin 4.1 g/dL (3.8-4.9); Albumin/Globulin Ratio 2.05 Ratio (1.60-3.17); Alkaline Phosphatase 58 U/L (41-126); BUN/Creat Ratio 15.89 Ratio (12.00-20.00); Blood Urea Nitrogen 14.3 mg/dL (9.0-27.0); Calcium 8.8 mg/dL (8.7-10.3); Chloride 108 mmol/L (96-109); Chol/HDL Ratio 2.26 Ratio; Glucose 107 mg/dL (70-110); LDL Cholesterol,Calculated 54.7 mg/dL (0.0-131.0); Potassium 4.3 mmol/L (3.5-5.5); Sodium 141 mmol/L (135-145); Total Bilirubin 0.9 mg/dL (0.3-1.2); Total Protein 6.1 g/dL (6.2-8.2); VLDL Calculation 19.86 mg/dL (5.00-40.00)
== END | disposition home or self-care (01) ==
LOC: LABWHC1 07:36
PROVIDERS: ATTEND Internal Medicine Interventional Cardiology
DX: E78.2 Mixed hyperlipidemia (principal)
CPT/HCPCS: 36415; 80053; 80061

== ENCOUNTER → 2023-12-19 | Outpatient (CLI) | payer OTHER, MEDICARE ==
[2023-12-19 09:12] LABS: Appearance,Urine Clear (Clear); Bacteria,Urine Rare /hpf; Bilirubin,Urine Negative (Negative); Blood,Urine Moderate (Negative); Color,Urine Light Yellow; Glucose,Urine (UA) Negative (Negative); Ketones,Urine Negative (Negative); Leukocyte Esterase,Urine Trace (Negative); Mucus,Urine Occasional /hpf; Nitrite,Urine Negative (Negative); PH, Urine 5.5 (5.0-8.0); Protein,Urine Trace (Negative); RBC,Urine 121 /hpf (0-5); Specific Gravity,Urine 1.011 (1.001-1.035); Squamous Epithelial Cell,Urine <1 /hpf (0-4); Urobilinogen,Urine <2.0 mg/dL (<2.0); WBC,Urine 11 /hpf (0-5)
[2023-12-19 15:51] LABS: Basophils # (A) 0.11 X 10*3/uL (0.00-0.10); Basophils % (A) 1.3 %; Eosinophils % (A) 4.6 %; HCT 46.1 % (39.6-50.0); HGB 15.6 g/dL (13.0-17.0); Lymphocytes # (A) 2.12 X 10*3/uL (0.90-5.00); Lymphocytes % (A) 24.1 %; MCH 32.4 pg (27.0-32.0); MCHC 33.8 g/dL (32.0-37.0); MCV 95.6 FL (80.0-97.0); Mean Platelet Volume 10.9 FL (9.5-12.2); Monocytes # (A) 0.79 X 10*3/uL (0.20-1.00); NRBC Per 100 WBC 0 X 10*3/uL (0.00-0.01); Neutrophils # (A) 5.17 X 10*3/uL (1.80-7.70); Neutrophils % (A) 58.8 %; Platelet Count 192 X 10*3/uL (140-440); RBC 4.82 X 10*6/uL (4.40-5.60); RDW 13.4 % (11.5-14.5); WBC 8.78 X 10*3/uL (4.50-10.00)
[2023-12-19 15:53] LABS: ALT 20 U/L (10-49); AST 24 U/L (14-35); Albumin/Globulin Ratio 1.82 Ratio (1.60-3.17); Alkaline Phosphatase 58 U/L (41-126); Blood Urea Nitrogen 14.8 mg/dL (9.0-27.0); Calcium 9.2 mg/dL (8.7-10.3); Carbon Dioxide 23.1 mmol/L (21.6-31.8); Chloride 107 mmol/L (96-109); Chol/HDL Ratio 2.46 Ratio; Globulin 2.2 g/dL (1.6-3.3); Glucose 102 mg/dL (70-110); LDL Cholesterol,Calculated 57.6 mg/dL (0.0-131.0); Magnesium 1.9 mg/dL (1.5-2.4); Potassium 4.1 mmol/L (3.5-5.5); Sodium 142 mmol/L (135-145); Total Bilirubin 0.8 mg/dL (0.3-1.2); Total Protein 6.2 g/dL (6.2-8.2); VLDL Calculation 17.84 mg/dL (5.00-40.00)
== END | disposition home or self-care (01) ==
LOC: LABWHC1 08:09
PROVIDERS: ATTEND Internal Medicine
CPT/HCPCS: 36415; 80053; 80061; 81001; 83036; 83735; 84443; 85025; 87086

== ENCOUNTER → 2024-03-01 | Outpatient (CLI) | payer OTHER ==
[2024-03-01 15:13] LABS: African American GFR (CKD) 85 (>60 ml/min/1.73 sqM); Blood Urea Nitrogen 23 mg/dL (9-20); Non-African American GFR(CKD) 74 (>60 ml/min/1.73 sqM)
[2024-03-01 15:31] LABS: ALT 21 U/L (10-49); AST 24 U/L (14-35); Albumin 4.1 g/dL (3.8-4.9); Albumin/Globulin Ratio 1.95 Ratio (1.60-3.17); Alkaline Phosphatase 59 U/L (41-126); BUN/Creat Ratio 20.67 Ratio (12.00-20.00); Blood Urea Nitrogen 18.6 mg/dL (9.0-27.0); Calcium 9.5 mg/dL (8.7-10.3); Carbon Dioxide 24.7 mmol/L (21.6-31.8); Chloride 110 mmol/L (96-109); Globulin 2.1 g/dL (1.6-3.3); Glucose 106 mg/dL (70-110); LDL Cholesterol,Calculated 45.9 mg/dL (0.0-131.0); Potassium 4.3 mmol/L (3.5-5.5); Sodium 146 mmol/L (135-145); Total Bilirubin 0.9 mg/dL (0.3-1.2); Total Protein 6.2 g/dL (6.2-8.2)
== END | disposition home or self-care (01) ==
LOC: LABWHC1 09:04
PROVIDERS: ATTEND Internal Medicine Interventional Cardiology
DX: E78.2 Mixed hyperlipidemia (principal)
CPT/HCPCS: 36415; 80053; 80061; 82565; 84520

== ENCOUNTER → 2024-03-01 | Outpatient (CLI) | payer OTHER ==
--- NOTE | 2024-03-01 15:55 | CT ---
EXAMINATION TYPE: CT angio chest CT DLP: 1437.9 mGycm, Automated exposure control for dose reduction was used. DATE OF EXAM: 03/01/2024 3:42 PM COMPARISON: CTA chest 07/26/2021, 04/22/2020, CT chest 09/04/2018 CLINICAL INDICATION:Male, 78 years old with history of I71.2 ANEURYSM; thoracic aneurysm TECHNIQUE/CONTRAST: CTA scan of the thorax is performed without and with IV Contrast, patient injected with 100 mL of Iso shyla 370. 3D reconstructed images are created on an independent workstation and reviewed.. FINDINGS: Lungs/Pleura: No evidence of focal consolidation, pleural effusion or pneumothorax. Mild right lower lobe dependent subsegmental atelectasis with some linear atelectasis. Stable right midlung 4 mm pulmo nary nodule dating back to at least 2021 and considered benign. No new or enlarging pulmonary nodules . Airway: Large airways are patent. Heart: The heart is moderately enlarged for size. No pericardial effusion. Post-CABG changes. No intr amural hematoma or dissection. Aortic valvular calcifications identified. Small mitral annulus calcif ications. Vasculature: Mild atherosclerotic calcification of the aorta and its branches. Mild stenosis at the o rigin of the celiac axis and SMA secondary to calcified plaque. Conventional three-vessel aortic arch . Stable fusiform aneurysmal dilatation of the ascending thoracic aorta measuring up to 4.9 cm. Stabl e aneurysm dilatation of the aortic root measuring up to 4.5 cm. The descending thoracic aorta measur es up to 3.2 cm. Dilated main pulmonary artery measuring up to 3.5 cm which can be seen with pulmonar y arterial hypertension. No central filling defect identified. Mediastinum: No gross evidence of adenopathy. Musculoskeletal: No acute osseous abnormalities. Median sternotomy wires. Multilevel degenerative dis c disease. Calcification along the posterior longitudinal ligament at T4-T5. Soft Tissues: Unremarkable. Lower neck: No significant findings. Upper Abdomen: Diffuse low-attenuation to the liver parenchyma.. Gallbladder is surgically absent. Th ere appears to be some drop gallstones in the ashley hepatis region. IMPRESSION: 1. Stable ascending thoracic aortic aneurysm measuring up to 4.9 mm. 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 No evidence for intramural hematoma or dissection. 2. Stable dilated main pulmonary artery measuring up to 3.5 cm which can be seen with pulmonary jose rial hypertension. [facility], , 03/01/2024 3:53 PM
== END | disposition home or self-care (01) ==
LOC: RADCTMAIN 14:07
PROVIDERS: ATTEND Internal Medicine Interventional Cardiology
DX: I71.21 Aneurysm of the ascending aorta, without rupture (principal)
CPT/HCPCS: 71275; 36415; Q9967

== ENCOUNTER → 2024-07-04 | Outpatient (CLI) | payer MEDICARE ==
[2024-07-04 10:15] LABS: Basophils # (A) 0.12 X 10*3/uL (0.00-0.10); Basophils % (A) 1.3 %; Eosinophils # (A) 0.48 X 10*3/uL (0.04-0.35); Eosinophils % (A) 5.3 %; HCT 45.5 % (39.6-50.0); HGB 15.1 g/dL (13.0-17.0); Lymphocytes # (A) 2.33 X 10*3/uL (0.90-5.00); Lymphocytes % (A) 25.8 %; MCH 31.7 pg (27.0-32.0); MCHC 33.2 g/dL (32.0-37.0); MCV 95.6 FL (80.0-97.0); Mean Platelet Volume 11.4 FL (9.5-12.2); Monocytes # (A) 0.72 X 10*3/uL (0.20-1.00); NRBC Per 100 WBC 0 X 10*3/uL (0.00-0.01); Neutrophils % (A) 57.7 %; Platelet Count 198 X 10*3/uL (140-440); RBC 4.76 X 10*6/uL (4.40-5.60); RDW 13.8 % (11.5-14.5); WBC 9.02 X 10*3/uL (4.50-10.00)
[2024-07-04 13:02] LABS: ALT 27 U/L (10-49); AST 25 U/L (14-35); Albumin 4.1 g/dL (3.8-4.9); Albumin/Globulin Ratio 1.86 Ratio (1.60-3.17); Alkaline Phosphatase 58 U/L (41-126); BUN/Creat Ratio 18.89 Ratio (12.00-20.00); Carbon Dioxide 22.4 mmol/L (21.6-31.8); Chloride 108 mmol/L (96-109); Chol/HDL Ratio 2.13 Ratio; Globulin 2.2 g/dL (1.6-3.3); Glucose 109 mg/dL (70-110); LDL Cholesterol,Calculated 43.9 mg/dL (0.0-131.0); Prostate Specific Antigen 0.51 ng/mL (0.000-6.500); Sodium 140 mmol/L (135-145); Total Bilirubin 0.8 mg/dL (0.3-1.2); Total Protein 6.3 g/dL (6.2-8.2)
== END | disposition home or self-care (01) ==
LOC: LABWHC1 07:35
PROVIDERS: ATTEND Internal Medicine
DX: Z00.00 Encounter for general adult medical examination without abnormal findings (principal); I10 Essential (primary) hypertension; E78.2 Mixed hyperlipidemia; N40.0 Benign prostatic hyperplasia without lower urinary tract symptoms; R73.09 Other abnormal glucose
CPT/HCPCS: 36415; 80053; 80061; 83036; 84153; 84443; 85025

== ENCOUNTER → 2024-08-01 | Outpatient (CLI) | payer MEDICARE ==
[2024-08-01 15:36] LABS: ALT 28 U/L (10-49); AST 26 U/L (14-35); Albumin 4.1 g/dL (3.8-4.9); Albumin/Globulin Ratio 1.86 Ratio (1.60-3.17); Alkaline Phosphatase 58 U/L (41-126); BUN/Creat Ratio 19.75 Ratio (12.00-20.00); Blood Urea Nitrogen 15.8 mg/dL (9.0-27.0); Carbon Dioxide 22.1 mmol/L (21.6-31.8); Chloride 106 mmol/L (96-109); Chol/HDL Ratio 2.06 Ratio; Globulin 2.2 g/dL (1.6-3.3); Glucose 99 mg/dL (70-110); LDL Cholesterol,Calculated 46.4 mg/dL (0.0-131.0); Potassium 4.3 mmol/L (3.5-5.5); Sodium 141 mmol/L (135-145); Total Bilirubin 0.9 mg/dL (0.3-1.2); Total Protein 6.3 g/dL (6.2-8.2); VLDL Calculation 19.36 mg/dL (5.00-40.00)
== END | disposition home or self-care (01) ==
LOC: LABWHC1 08:50
PROVIDERS: ATTEND Internal Medicine Interventional Cardiology
DX: E78.2 Mixed hyperlipidemia (principal)
CPT/HCPCS: 36415; 80053; 80061